=== PATIENT | female | born 1980 | race Caucasian/White ===

== ENCOUNTER → 2019-10-23 10:23 | Outpatient (CLI) | payer OTHER, SELFPAY ==
[2019-10-23 10:15] VITALS: BMI 33.5
--- NOTE | 2019-10-23 10:27 | RAD_ITS ---
STUDY: X-RAY - LUMBOSACRAL SPINE REASON FOR EXAM: Female, 39 years old. PATIENT IS HAVING LEFT LEG NUMBNESS. NO RECENT INJURY. PATIENT STATES HAD SURGERY IN NOVEMBER 2015 FOR LOWER BACK DISC REPAIR. HX OF DDD JOINT DISEASE PER PATIENT. TECHNIQUE: 7 view(s) of the lumbosacral spine were obtained. COMPARISON: None FINDINGS: Normal lumbar lordosis. There is no substantial scoliosis. There is normal alignment of the vertebrae. The patient is status post anterior fusion at L5-S1. Normal vertebral bodies and endplates. Normal disc space heights. No evidence of spondylolisthesis. No evidence of dynamic instability. Normal bilateral sacral ala, sacroiliac joints, and visualized sacrum. Normal visualized soft tissue structures. RAD/L/S Spine w Bend Min 6 Vw IMPRESSION: Postoperative changes as described with no acute fracture, spondylolisthesis or pars defect. No evidence of dynamic instability. Electronically Signed: Rashida Eduardo MD at 3:38 EDT , Service support ,
--- NOTE | 2019-10-23 10:27 | RAD_ITS ---
STUDY: X-RAY - LEFT KNEE REASON FOR EXAM: Left knee swelling and pain, no recent injury. TECHNIQUE: 4 view(s) of the knee. COMPARISON: None. FINDINGS: Normal visualized distal femur. Normal visualized proximal tibia and fibula. Normal proximal tibiofibular articulation. Normal medial femorotibial compartment. Normal lateral femorotibial compartment. Normal patellofemoral articulation. The soft tissue structures are unremarkable. RAD/Knee 4 or More Views IMPRESSION: Normal x-ray examination of the left knee. Electronically Signed: Apollo Chamberlain MD at 12:11 EDT Tel , Service support ,
== END ==
PROVIDERS: PCP Family Medicine; Referring Provider Orthopaedic Surgery; Visit Provider Orthopaedic Surgery
DX: R20.0 Anesthesia of skin (principal); M25.562 Pain in left knee
CPT/HCPCS: 72114; 73564

== ENCOUNTER → 2019-10-28 11:03 | Outpatient (CLI) | payer OTHER, SELFPAY ==
[2019-10-23 10:15] VITALS: BMI 33.5
--- NOTE | 2019-10-28 11:04 | MRI_ITS ---
STUDY: MRI LEFT KNEE REASON FOR EXAM: Lateral left knee pain for 2 months. TECHNIQUE: Standardized fat and water weighted pulse sequences were obtained in all 3 orthogonal planes. COMPARISON: Radiographs 10/23/2019. FINDINGS: Normal medial meniscus. Normal hyaline cartilage of the medial femorotibial compartment. Normal medial femoral condyle and tibial plateau. Normal medial collateral ligamentous complex (MCL). Normal distal semimembranosus, gracilis and semitendinosus tendons. There is mild intrasubstance myxoid degeneration of the anterior horn and body of the lateral meniscus without discrete lateral meniscal tear. Normal hyaline cartilage of the lateral femorotibial compartment. Normal lateral femoral condyle and tibial plateau. Normal proximal tibiofibular articulation. Normal lateral collateral (fibular) ligament. Normal popliteus tendon. Normal biceps femoris tendon. There is edema deep to the iliotibial band (T2 coronal images 19, 20). Normal anterior cruciate ligament (ACL). Normal posterior cruciate ligament (PCL). Normal congruent patellofemoral articulation. Normal hyaline cartilage of the patellofemoral compartment. Normal medial and lateral patellar retinaculum. Normal visualized quadriceps tendon. Normal patellar tendon. Normal Hoffa''s fat pad. There is no joint effusion. There is a thin medial patellar plica. There is mild edema in the anterior subcutis adipose space. The otherwise visualized osseous structures are unremarkable. MRI/Lower Ext Joint Only (Routine) IMPRESSION: Edema deep to the iliotibial band, suggestive of iliotibial band friction syndrome. No demonstrated lateral meniscal tear. Electronically Signed: Apollo Chamberlain MD at 12:28 EDT Tel , Service support ,
== END ==
PROVIDERS: PCP Family Medicine; Referring Provider Orthopaedic Surgery; Visit Provider Orthopaedic Surgery
DX: S83.282A Other tear of lateral meniscus, current injury, left knee, initial encounter (principal)
CPT/HCPCS: 73721

== ENCOUNTER 2020-01-07 05:48 | Day surgery (SDC) | payer OTHER, SELFPAY ==
[2019-12-16 10:48] VITALS: BMI 33.5
[2020-01-07] VITALS (9 sets, daily range): BP systolic 110–119; BP diastolic 72–87; PULSE 61–99; RESP 14–18; TEMP 36–37; O2SAT 93–100; BMI 36.5
[2020-01-07 06:19] LABS: Internal QC Validated? YES +Cl - CLEAR BKGD; Pregnancy, Urine Negative Negative
[2020-01-07] MEDS: Lactated Ringers 1,000 ML 100 ML IV ×2 (06:33→09:20)
--- NOTE | 2020-01-07 07:33 | HP.PCM_ITS ---
History and Physical I have re-examined the patient. There are no clinical changes since date of exam. Intake Vital Signs 12/16/19 BMI 33.5 Intake Visit Reasons: LEFT KNEE Allergies cephalexin Allergy (Severe, Verified 10/23/19 10:16) difficulty breathing COUNTS INCLUDE 234 BEDS AT THE [facility] Surgical History (Updated 10/23/19 @ 10:18 by Keely Kennedy) History of lumbar fusion (Acute) Hx of arthroscopy of right knee (Acute) Hx of section (Acute) HPI HPI Details: Patient was informed that this visit will be billed to patient. This visit was conducted during COVID- pandemic. MIGUEL NELSON, is a 39 F who presents to the office today for knee pain, continued lateral knee pain. tramadol helps with pain, no other medications. Denies numbness, tingling or other associated symptoms. mri complete. has lani working and wearing mask. off for 2 weeks. pain with deep squats, still clicking/popping worse with stairs. ROS Const Constitutional: No anorexia Eyes Eyes: No blurry vision ENT ENT: No abnormal hearing Resp Respiratory: No cough Cardio Cardiology: No chest pain at rest Gastro GI: No abdominal pain Genitourinary-Female: No difficulty urinating Musc Musculoskeletal: Positive for joint pain Neuro Neurology: No abnormal hearing Exam Const General: cooperative, healthy appearing Nutritional Appearance: average body habitus Orientation: alert, awake, oriented x3 HENMT Head: normal to inspection Ears: hearing grossly normal bilaterally Eyes General: appearance normal, both eyes and all related structures Neck Neck: normal visual inspection Musc Musculoskeletal: Yes decreased ROM Assessment & Plan Problems 1. 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 Lateral meniscal tear S83.289A Plan Reviewed the pre-operative plans with the patient. Risks and benefits of the procedure were fully explained, including but not limited to infection, neurovascular injury, continued pain, arthritis, stiffness, need for further surgery, re-injury, DVT, PE, general risks of anesthesia, and loss of limb or life. The patient understands all the risks and does wish to proceed with written consent. left knee lateral meniscus vs repair, and open itb release/debridement repair as indicated. staff with call with date of surgery All questions answered. Patient in agreement of plan. Follow up 2 weeks posotp or sooner if pain, swelling, numbness or associated symptoms, or concerns develop. We discussed the current risk associated COVID-19. While it is understood that there is a community spread of COVID 19 the risk of tito COVID-19 while at [facility] is very low, however, the risk cannot be completely mitigated because of the community spread of the disease. We discussed in detail the risk of exposure to and or potential harm posed by the COVID-19 virus with having a surgery/procedure at this time versus the risk of delaying the surgery/procedure. Is not possible to know either the risk of delaying the surgery procedure or chance of getting an infection with perfect accuracy, but a joint decision was made to proceed at this time with a schedule surgery/procedure as indicated on the consent form. Patient was notified that we will need to comply with any screening or testing [facility] wishes to perform or that surgery may be delayed for any positive results. 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 It is not possible to know either the risk of delaying the surgery or procedure or chance of getting an infection with perfect accuracy, but a joint decision was made between the patient and the surgeon/proceduralist to proceed at this time with the scheduled surgery/procedure as indicated on the consent form.
[2020-01-07] MEDS: Mupirocin Ointment 22gm Tube 1 APPLIC (08:19)
--- NOTE | 2020-01-07 09:11 | DCINST_ITS ---
Discharge Diet: No Restrictions - follow up on sunday with aaron for dressing change and brace adjustment, call for appointment [phone], wbat brace 0-90 degrees; Ice, Elevate, ankle Pumps, call with concerns Discharge Activity: May Not Drive May shower in (days): 1 Ice area for (Minutes): 20 - Every hour while awake. Weight Bearing Status: Weight bearing as tolerated Keep extremity elevated above heart level: Operative Extremity Call your doctor if your incision/area has: Continuous Slow Oozing, Sudden Increased Bleeding, Increased Pain/ Swelling, Increased Redness, Foul Smelling Discharge Call your doctor if you observe: Fever of 101 or Higher, Coldness, Increased Pain, Numbness or Tingling, Change in Color, Calf discomfort Allergies/Adverse Reactions: Allergies cephalexin Allergy (Severe, Verified 10/23/19 10:16) difficulty breathing Medications to take at Discharge meloxicam 15 mg tablet 15 mg PO PRN PRN 10/23/19 tramadol 50 mg tablet 50 mg PO Q8H PRN #60 tab 11/11/19 Primary Care Physician: Fabricio Melendez MD [Primary Care Provider] - Test Results: Test results from this visit will be discussed in further detail at your follow- up appointment, if applicable. Please Follow Up With: Génesis Rebollar, DO - [phone]
--- NOTE | 2020-01-07 09:12 | PCM.OPRPT ---
Report of Operation Date of Procedure: 01/07/20 Pre-Operative Diagnosis: left knee lateral meniscus tear, hoffa syndrome, ITB friction syndrome Post-Operative Diagnosis: same Surgery/Procedure Performed:: salk, lateral meniscectomy, extensive synovectomy, open itb release and bursectomy Type of Anesthesia:: General Anesthesiologist: Braulio Colin Drains: tt-59min Estimated Blood Loss (mL): none Fluids Replaced: 1000ml lr Description of Procedure: Preop note Patient is a 39-year-old female with continued left lateral knee pain recalcitrant to conservative treatment. 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 Risk benefits alternatives surgery were discussed with patient. Risk including but not limited to blood loss, blood clot clot, infection, neurovascular, failure procedure, loss of life and loss of limb. Patient is aware of these risk as well as the COVID risk. We discussed the current risk associated COVID-19. While it is understood that there is a community spread of COVID 19 the risk of tito COVID-19 while at [facility] is very low, however, the risk cannot be completely mitigated because of the community spread of the disease. We discussed in detail the risk of exposure to and or potential harm posed by the COVID-19 virus with having a surgery/procedure at this time versus the risk of delaying the surgery/procedure. Is not possible to know either the risk of delaying the surgery procedure or chance of getting an infection with perfect accuracy, but a joint decision was made to proceed at this time with a schedule surgery/procedure as indicated on the consent form. Patient was notified that we will need to comply with any screening or testing [facility] wishes to perform or that surgery may be delayed for any positive results. I also discussed that I have not been tested and there is risk associated this patient is aware. We will proceed with left knee arthroscopy open IT band release bursectomy repair as indicated Operative note Patient seen and examined preop holding area. Left knee was marked. Patient brought to the operating room placed supine on the operating table. Signed, anesthesia, antibiotics were administered. The left leg was prepped and draped usual sterile fashion with tourniquet around her upper leg. All bony problems well-padded SCDs placed on her contralateral limb. We marked out our incision for anterolateral anteromedial placement portal placement as well as her IT band as well as the insertion and the proximal fibular head as well as Janet's tubercle. The left knee was then elevate exsanguinated tourniquet was raised her pressure of 250 torr. Timeout was performed. Then we used an 11 blade to create our anterior lateral portal with difficulty getting into the amount of fibrosis we had to go into the medial joint line to start then created an anterior medial portal and direct visualization. We then put a shaver into the area and resected the extensive synovitis that was anterior lateral anteromedial none also in the suprapatellar pouch. After this was done we then were able to visualize the patellofemoral joint which was intact we then inserted probed the medial meniscus was intact to probing she has some thinning of the medial femoral condyle medial tibial plateau ACL PCL were present within the notch her lateral femoral condyle her lateral tibial plateau were intact stable probing she has some thinning of the lateral tibial plateau as well as the lateral femoral condyle but no large fibrillated changes. There was a radial tear in the mid body of the lateral meniscus which were resected with back with a combination of a basket and shaver we then reinserted the probe ensure that we had good remnant meniscus remaining which we did. We then irrigated the knee with copious nonsterile saline and then moved our open repair. We create about a 2 and half to about 3 cm incision over the central aspect of the IT band tendon just around the medial femoral condyle we dissected and we use a 15 blade to make her incision dissected down tenotomies to the fat layer down to the IT band tendon re-palpated the anterior and posterior aspect of the IT band and extended this both proximally and distally on the medial femoral condyle we then were able to release the bursa and excised this and then we performed a pie crusting technique over the IT band and then flexed and extended the knee ensure that we had decreased flexion which we did have at that point and the IT band was much looser at that point we then irrigated the incision with copious muscle sterile saline. Subcuticular layer was closed with 3-0 Vicryl and skin was closed with 4-0 running Monocryl. Sterile Steri-Strips and a sterile dressing was applied and brace was applied to the left knee. Trach is deflated for total working fine 59 minutes. Patient taught procedure well no complication transferred to recovery room in stable condition. Postoperative Weight-bear as tolerated brace locked in extension Follow-up on Sunday with Jamel dressing changes Call with increased pain numbness tingling or further issues arise Hospitalist prescriptions Dragon disclaimer This note was generated with navigaya dictation software. It may contain incorrect words, spelling, and punctuation that were not noted in checking the note before signing.
== END 2020-01-07 12:29 | disposition home or self-care (01) ==
LOC: SDC 05:49 → AC 05:50
PROVIDERS: Anesthesiology; PCP Family Medicine; Referring Provider Orthopaedic Surgery; Visit Provider Orthopaedic Surgery
PROC: (CPT 29882; principal; 2020-01-07 07:10)
DX: S83.282A Other tear of lateral meniscus, current injury, left knee, initial encounter (principal); M76.31 Iliotibial band syndrome, right leg; M76.32 Iliotibial band syndrome, left leg; M65.9 Synovitis and tenosynovitis, unspecified; Z11.59 Encounter for screening for other viral diseases; M06.9 Rheumatoid arthritis, unspecified
CPT/HCPCS: 27305; 29876; 29881; 81025; 87635; G2023; J7120; J2405; U0004

== ENCOUNTER 2020-12-28 09:57 | Day surgery (SDC) | payer OTHER, SELFPAY ==
[2020-12-01 11:33] VITALS: BMI 35.6
[2020-12-28 10:31] VITALS: BP 134/81; PULSE 91; RESP 16; TEMP 36.8; O2SAT 99; BMI 35.6
[2020-12-28 10:33] LABS: Internal QC Validated? YES +Cl - CLEAR BKGD; Pregnancy, Urine Negative Negative
[2020-12-28] MEDS: Lactated Ringers 1,000 ML 100 ML IV (10:46)
--- NOTE | 2020-12-28 11:18 | HP.PCM_ITS ---
History and Physical Date of Admission: 12/28/20 Date of Service: 12/01/20 MR#:[id number]:[id number]: MIGUEL NELSON [facility] #:[id number]:1980 Provider:Dr. Perez Robins DOAge/Sex: 40/F Location:[facility]:Signed with Addenda ADDENDUM by Dr. Perez Robins DO on 12/27/20 at 0856 Assessment and Plan Plan Details Additional Comments: To recall patient's prior surgery with Dr. Hopkins really was 01/07/2020 at that time she did have a lateral meniscectomy and an opened iliotibial band release with bursectomy, she has subsequently had repeat MRI which showed degenerative tearing over the lateral meniscus.but no further IT band swelling, the reason for the repeat MRI was continued symptoms after 1 year after knee arthroscopy and failing of conservative treatment, I did explain to the patient that MRI lateral meniscus changes may be just postsurgical changes however she was already scheduled with Dr. Hopkins really for repeat arthroscopy and she understands the risk of continued pain and wishes to proceed with me since Dr. Duy Torres is leaving the practice . I explained her that I cannot guarantee any improvement in her symptoms postoperative swelling continued symptoms blood clot infection nerve pain for which she seems to be experiencing already as she has unusual sensations around the lateral side of the knee. 12/27/20 0856<Electronically signed by Perez Robins DO>Date Perez Robins DO cc: ~*Signed Intake Vital Signs 12/01/20 Height 5 ft 6 in 12/01/20 Weight: 221 lb 2 oz 12/01/20 BMI 35.6 Intake Visit Reasons: left knee Accompanied by: Self Is patient in pain?: Yes Allergies cephalexin Allergy (Severe, Verified 12/01/20 11:33) difficulty breathing Medications NK 12/01/20 [History Confirmed 12/01/20] PFSH Surgical History (Updated 01/07/20 @ 07:[address] Génesis Rebollar DO) History of lumbar fusion (Acute) Hx of arthroscopy of right knee (Acute) Hx of section (Acute) Social History (Updated 12/01/20 @ 13:[address] Perez Robins DO) Smoking Status: Never smoker HPI left knee: Details: Parts of this documentation were recorded by a scribe, this documentation accurately reflects the service provided and the decisions made by me, Dr. Perez Robins DO 12/01/20 0755. MIGUEL NELSON is a 40 year old F here today for left knee pain. Patient's last left knee x-ray: 10/23/19, Last knee MRI: 10/28/19, and 10/03/20. Patient was on schedule for surgery with Dr. Rebollar, wants to discuss surge ry for possibly 12/28/20. Patient voiced she previously had surgery last December. Patient states she needs her IT band and meniscus repaired. Patient began having pain in July of last year with swelling. Patient has taken naproxen OTC, with no improvement and her pain worsened. Patient has tried and failed cortisone injections and aspiration. Pain with her knee: anterior, and lateral. Patient cannot kneel with her left knee and pain worsens with ambulating. Knee has given out previously. Denies any recent popping, clicking and snapping of her knee. Patient has previously done physical therapy. During examination: Patient cannot recall any injury or accident. Pain started out of the blue. States she had DDD of her back, denies lupus history. Denies pain ascending to her left hip. Ortho Exam General General: Yes no acute distress Neurologic: Yes alert Psychologic: Yes reasonable and appropriate Right Knee Patella Translation: 1 Left Knee Date of Surgery: 01/07/20 Skin/Wound: No ecchymosis, No erythema, No swelling Homans Sign: No Knee ROM: Yes ROM-Extension -20 to 0, Yes ROM-Flexion 0-140 Examination: Yes med jt line tenderness (shooting pain to lateral side of knee), Yes Lat jt line tenderness, No Armand's Test (with lateral), No TTP Pes Anserine, No ITB tenderness Stability: NML: Anterior Drawer, NML: Kati, NML: Posterior Drawer, NML: Valgus 0, NML: Valgus 30, NML: Varus 0, NML: Varus 30 Apprehension with Lateral Translation: No Patella Translation: 1 Patellar Tilt Normal: Yes Patella Grind: Yes KNEE: Hypersensitivity to touch anterior knee touch feels posterior lateral pain which is not anatomic Supplemental Info 10/03/2020 MRI on disc from [facility] left knee horizontal tear of the body and anterior horn of lateral meniscus associated small parameniscal cyst ACL PCL and collateral ligaments intact articular cartilage is preserved, no sign of recurrence of IT band syndrome 10/28/2019 MRI left knee: Edema to the iliotibial band suggestive iliotibial band friction syndrome Assessment & Plan Problems 1. Peripheral tear of lateral meniscus of left knee as current injury, subsequent encounter S83.262D 2. Class 2 obesity due to excess calories without serious comorbidity with body mass index (BMI) of 35.0 to 35.9 in adult E66.09; Z68.35 Plan Personally reviewed the patient's medical history, medications, surgeries and recent exams if available. Based on examination, We can perform surgery. However, not a guarantee the pain will subside. Explained it sounds like she has some nerve irritation, not with her meniscus. Explained we can try different bracing, formal physical therapy and/or arthroscopy. If repairable, has to be non-weight bearing for six weeks . Can trim the piece, can ambulate right away. Advised patient her ACL looked okay based on her recent MRI. Can take a look during surgery, and can clean up any scar tissue. Risks, benefits and alternatives of surgery reviewed including but not limited to bleeding, infection, nerve, artery and/or tissue damage, fracture, VTE, mechanical feel of the knee, continued pain, stiffness and expected post- operative course. Patient would like to proceed with surgery and have it scheduled in December 28. All questions answered. Patient in agreement of plan. Coding Level of Care Code Off vis,est,level 3 Diagnoses Peripheral tear of lateral meniscus of left knee as current injury, subsequent encounter S83.262D Tear current or old: current Encounter type: subsequent encounter Meniscus tear of knee type: peripheral Class 2 obesity due to excess calories without serious comorbidity with body mass index (BMI) of 35.0 to 35.9 in adult E66.09; Z68.35 Obesity type: due to excess calories Obesity classification: adult class 2 (BMI 35 - 39.9) Serious obesity comorbidity presence: without serious comorbidity Body mass index: BMI 35.0-35.9 04/21/21 1349<Electronically signed by Perez Robins DO>Date Perez Robins DO I have re-examined the patient. There are no clinical changes since date of exam
[2020-12-28] MEDS: Epinephrine (1 mg/ml) 1 MG/ML VIAL (11:57)
[2020-12-28] MEDS: Bupivacaine 0.25%-Epi/Pf 1:200,000 10 ML (11:57)
[2020-12-28] MEDS: MethylPREDNISolone Acetate 40 MG/ML Vial IM (12:14)
[2020-12-28] MEDS: Bupivacaine 0.5% PF 10 ML VIAL (12:14)
--- NOTE | 2020-12-28 12:18 | PCM.DC ---
Discharge Instructions Diet Discharge Diet: No restrictions Activity Weight Bearing Status: Weight bearing as tolerated Dressing / Incision Additional Dressing/Incision Instructions:: Ice and elevate next 72 hours .keep dressing on clean and dry for 48 hours then may remove begin showering daily but do not submerge in tub or pool. After shower may apply Band-Aids . Encourage knee range of motion weightbearing as tolerated, use crutches until confident in knee then may discontinue. No strenuous activity. When not ambulating keep iced and elevated next 72 hours. Do not mix pain medication with recreational drugs or alcohol only take as prescribed can be addictive and abusive, call with any questions or concerns. Follow Up Care Please Follow Up With: Perez Robins DO When: 2 weeks Test Results: Test results from this visit will be discussed in further detail at your follow-up appointment, if applicable. Discharge Plan Admission Attending Provider: Perez Robins Primary Care Provider: Cami Lacy Discharge Orders/Prescriptions Prescriptions: New oxycodone 5 mg capsule 5 mg PO Q4H PRN (Reason: pain) 5 Days Qty: 30 RF: 0 Referrals / Follow Up: Cami Lacy MD [Primary Care Provider] - Disposition Discharge Orders: Discharge Patient (Routine); Ordered 12/28/20 Ordered By: Dr. Perez Robins
--- NOTE | 2020-12-28 12:22 | OP.PCM_ITS ---
Report of Operation Description of Surgical Findings:: Preop diagnosis: Left knee recurrent anterior horn lateral meniscus tear Postoperative diagnosis: Same plus plica band Procedure: Left knee arthroscopic partial lateral meniscectomy anterior horn partial, excision of plica Anesthesia: General Estimated blood loss: 5 mL Tourniquet time 26 minutes 300 mmHg Complications: none Mainframe Programmer Analyst: Kayy CARPENTER Indication for procedure: 40-year-old female patient who has had prior knee arthroscopy 2019 as well as open IT band release and bursectomy by Dr. Rebollar at that time who has had continued pain mechanical symptoms. Repeat MRI this year showing recurrent anterior horn lateral meniscus tear with no recurrence of IT band inflammation or swelling or, the patient did wish to proceed with an elective arthroscopic surgery to attempt to alleviate the symptoms. Risk benefits and alternatives of the procedure were reviewed including risk of bleeding infection nerve artery tissue damage need for further surgery continued pain and expected postoperative course. Especially since she seemed to have some hypersensitivity and nerve pain around the knee as well which was not indicative of meniscal pathology, Procedure: The patient was met in the preoperative holding area. The operative extremity was identified by both patient and physician and family and marked. Patient was brought back to the operating room on a wheeled cart and transferred to the operating table in the supine position. Anesthesia was started. A well- padded tourniquet was placed on the operative extremity. A lower extremity leg davenport was secured to the operative extremity. The contralateral extremity was well-padded and the end of the bed was flexed to 90 degrees. The patient was prepped and draped in the usual sterile fashion. A timeout was called to ensure the proper patient, procedure, and extremity were being contemplated. 0.5% Marcaine with epinephrine was injected into the planned incisional areas under the skin only. An Esmarch was used to exsanguinate the extremity and the tourniquet was inflated. An 11 blade scalpel was used to make a stab incision in the anterior lateral portal. The arthroscope was inserted into the intercondylar notch and inflow and outflow tubes were attached. Arthroscopic visualization began. The medial compartment was entered. An 18-gauge spinal needle was used to establish the placement for anterior medial portal. An 11 blade scalpel was used to make a stab incision. Blunt probe was inserted followed by a meniscal probe. It was free of meniscal or cartilage pathology. The ACL was found to be intact. The lateral compartment was entered anterior horn lateral meniscus small radial tear with the use of arthroscopic biting instruments and dm and ArthroCare wand a partial lateral meniscectomy was performed. There was some synovitis and scar tissue from previous surgery which was excised in addition there was a medial plica band which was excised with a shaver the arthroscope was switched to the medial portal to complete the procedure. The medial and lateral gutters were inspected and were free of loose bodies. The patellofemoral joint was inspected and was free of cartilage pathology. There was good patellar tracking. The knee was thoroughly irrigated and drained. An intra-articular injection with 5 cc 0.5% Marcaine plain and 40 mg of Depo-Medrol was injected intra-articularly. The arthroscope was removed the portals were closed with 3-0 nylon arthroscopic stitches. Followed by Xeroform 4 x 4's ABDs web roll and an Donell wrap. The tourniquet was let down and the drapes were removed. All counts were correct. The patient was brought back to the PACU in stable condition.
[2020-12-28 12:30] VITALS: BP 112/74; BP 134/81; PULSE 88; RESP 16; TEMP 36.1; O2SAT 92
[2020-12-28 12:45] VITALS: BP 113/76; BP 134/81; PULSE 80; RESP 16; O2SAT 93
[2020-12-28 13:00] VITALS: BP 113/74; BP 134/81; PULSE 80; RESP 16; O2SAT 95
[2020-12-28 13:14] VITALS: BP 108/69; BP 134/81; PULSE 60; RESP 16; TEMP 36.4; O2SAT 98
[2020-12-28 13:35] VITALS: BP 134/81
== END 2020-12-28 14:00 ==
LOC: SDC 09:57 → AC 09:58
PROVIDERS: Anesthesiology; PCP Family Medicine; Referring Provider Orthopaedic Surgery; Visit Provider Orthopaedic Surgery
PROC: (CPT 29870; principal; 2020-12-28 11:50)
DX: S83.262A Peripheral tear of lateral meniscus, current injury, left knee, initial encounter (principal); M65.9 Synovitis and tenosynovitis, unspecified; X58.XXXA Exposure to other specified factors, initial encounter; Y93.9 Activity, unspecified; Y92.9 Unspecified place or not applicable; Z20.822 Contact with and (suspected) exposure to COVID-19; E66.09 Other obesity due to excess calories; Z68.35 Body mass index [BMI] 35.0-35.9, adult; Z86.2 Personal history of diseases of the blood and blood-forming organs and certain disorders involving the immune mechanism
CPT/HCPCS: 29881; 81025; 87426; C9803; J7120; J2405